=== PATIENT | female | born 1990 | race Caucasian/White ===

== ENCOUNTER 2020-09-05 11:13 | Emergency (ER) | payer OTHER ==
[~2020-09-05 11:13] MED LIST: BACTRIM DS1 TAB PO; BELBUCA150 MCG MT; DICLOFENAC75 MG PO; OXTELLAR XR150 MG MT; ZARONTIN250 MG PO
== END 2020-09-05 12:23 | disposition left against medical advice (07) | DRG 951 ==
LOC: ED 11:13 → LWOBS 12:22
DX: Z53.21 Procedure and treatment not carried out due to patient leaving prior to being seen by health care provider (principal)

== ENCOUNTER 2020-12-08 10:28 | Emergency (ER) | payer OTHER ==
[2020-12-08 11:45] LABS: HEMATOCRIT 45.8 % (37.0-47.0); IMMATURE GRANULOCYTES 0.3 % (0.0-5.0); MEAN CELL VOLUME 85.1 fL CALC (80.0-100.0); MEAN CORPUSCULAR HGB 27.9 pG CALC (26.0-32.0); MEAN CORPUSCULAR HGB CONC 32.8 g/dL CAL (32.0-36.0); NEUT# 8.78 thou/uL (2.00-7.15); RED BLOOD COUNT 5.38 mill/uL (4.20-5.60); RED CELL DISTRI WIDTH 13.2 % (11.5-15.5)
[2020-12-08 11:47] LABS: URINE BLOOD DIPSTICK MODERATE (NEGATIVE); URINE COLOR YELLOW; URINE GLUCOSE - DIPSTICK NEGATIVE (NEGATIVE); URINE KETONE TRACE mg/dL (NEGATIVE); URINE LEUK ESTERASE NEGATIVE (NEGATIVE); URINE PROTEIN - DIPSTICK 30 mg/dL (NEG-TRACE); URINE SPECIFIC GRAVITY >=1.030; URINE UROBILINOGEN - DIPSTICK 0.2 E.U./dL (0.2)
[2020-12-08 11:50] LABS: URINE BILIRUBIN - DIPSTICK SMALL (NEGATIVE)
[2020-12-08 11:51] LABS: URINE EPITHELIAL CELLS FEW EPI/hpf (0-FEW); URINE NITRITE - DIPSTICK NEGATIVE (Negative); URINE RBC 0-2 RBC/hpf (0-5); URINE WBC 0-2 WBC/hpf (0-5)
[2020-12-08 11:52] LABS: URINE AMORPH SEDIMENT MANY hpf (NONE-FEW)
[2020-12-08 13:12] LABS: ALBUMIN 4.2 g/dL (3.2-5.0); ALKALINE PHOSPHATASE 66 u/l (38-126); AMYLASE 47 u/l (30-110); ANION GAP 11 (6-22 (CALC)); BILIRUBIN, TOTAL 0.7 mg/dL (0.0-1.4); BUN 10 mg/dL (7-17); BUN/CREATININE RATIO 15 (12-20 (CALC)); CARBON DIOXIDE 25 mmol/l (22-30); CHLORIDE 101 mmol/l (95-108); CREATININE 0.7 mg/dL (0.5-1.0); GFR > 60 ML/MIN (>=60 (CALC)); GFR FOR AFR.AMER. > 60 ML/MIN (>=60 (CALC)); LIPASE 44 u/l (23-300); POTASSIUM 3.3 mmol/l (3.5-5.1); SGOT/AST 21 u/l (14-36); SODIUM 134 mmol/l (137-146); TOTAL PROTEIN 7.6 g/dL (6.3-8.2)
[2020-12-08] MEDS ORDERED: ZITHROMAX250 MG PO (16:43)
[2020-12-08 17:25] VITALS: BP 104/96
== END 2020-12-08 17:26 | disposition home or self-care (01) ==
LOC: ED 10:28
DX: A04.5 Campylobacter enteritis (principal)
CPT/HCPCS: Q9967

== ENCOUNTER 2021-11-18 15:07 | Emergency (ER) | payer OTHER ==
[~2021-11-18] VITALS: Ht 165.1 cm; Wt 118.0 kg
[2021-11-18] VITALS (10 sets, daily range): BP systolic 80–125; BP diastolic 52–80
[~2021-11-18 15:07] MED LIST changes: +ZITHROMAX250 MG PO
[2021-11-18 16:20] LABS: URINE BILIRUBIN - DIPSTICK NEGATIVE (NEGATIVE); URINE BLOOD DIPSTICK MODERATE (NEGATIVE); URINE COLOR YELLOW; URINE GLUCOSE - DIPSTICK NEGATIVE (NEGATIVE); URINE KETONE NEGATIVE (NEGATIVE); URINE LEUK ESTERASE NEGATIVE (NEGATIVE); URINE PROTEIN - DIPSTICK NEGATIVE (NEG-TRACE); URINE SPECIFIC GRAVITY >=1.030; URINE UROBILINOGEN - DIPSTICK 0.2 E.U./dL (0.2)
[2021-11-18 16:30] LABS: HEMATOCRIT 42.3 % (37.0-47.0); HEMOGLOBIN 13.8 g/dl (12.0-16.0); IMMATURE GRANULOCYTES 0.3 % (0.0-5.0); MEAN CELL VOLUME 86.3 fL CALC (80.0-100.0); MEAN CORPUSCULAR HGB 28.2 pG CALC (26.0-32.0); MEAN CORPUSCULAR HGB CONC 32.6 g/dL CAL (32.0-36.0); NEUT# 4.89 thou/uL (2.00-7.15); RED BLOOD COUNT 4.9 mill/uL (4.20-5.60)
[2021-11-18 16:30] LABS: URINE NITRITE - DIPSTICK NEGATIVE (Negative)
[2021-11-18 16:31] LABS: URINE SQUAMOUS EPITHELIAL CELL MANY EPI/hpf (0-FEW); URINE WBC 0-2 WBC/hpf (0-5)
[2021-11-18 16:46] LABS: ALKALINE PHOSPHATASE 59 u/l (38-126); AMYLASE 48 u/l (30-110); ANION GAP 16 (6-22 (CALC)); BUN 10 mg/dL (7-17); BUN/CREATININE RATIO 16 (12-20 (CALC)); CARBON DIOXIDE 21 mmol/l (22-30); CHLORIDE 107 mmol/l (95-108); CREATININE 0.6 mg/dL (0.5-1.0); GFR > 60 ML/MIN (>=60 (CALC)); GFR FOR AFR.AMER. > 60 ML/MIN (>=60 (CALC)); LIPASE 128 u/l (23-300); POTASSIUM 3.7 mmol/l (3.5-5.1); SGOT/AST 29 u/l (14-36); SODIUM 139 mmol/l (137-146); TOTAL PROTEIN 7.3 g/dL (6.3-8.2)
[2021-11-18 16:47] LABS: BILIRUBIN, TOTAL 0.4 mg/dL (0.0-1.4)
[2021-11-18] MEDS ORDERED: ZITHROMAX250 MG PO (18:20)
[2021-11-18] MEDS ORDERED: HYDROCO/APAP1 TA9 PO (18:20)
== END 2021-11-18 19:10 | disposition home or self-care (01) ==
LOC: ED 15:07
DX: A04.5 Campylobacter enteritis (principal); Z20.822 Contact with and (suspected) exposure to COVID-19
CPT/HCPCS: Q9967

== ENCOUNTER 2022-09-05 17:46 | Emergency (ER) | payer OTHER ==
[2022-09-05] VITALS (8 sets, daily range): BP systolic 105–140; BP diastolic 76–94
[~2022-09-05] VITALS: Ht 165.1 cm; Wt 115.0 kg
[~2022-09-05 17:46] MED LIST changes: +HYDROCO/APAP1 TA9 PO
[2022-09-05] MEDS ORDERED: NAPROXEN500 MG PO (19:23)
[2022-09-05] MEDS ORDERED: KEFLEX500 MG PO (19:39)
== END 2022-09-05 20:05 | disposition home or self-care (01) ==
LOC: ED 17:46
DX: S90.112A Contusion of left great toe without damage to nail, initial encounter (principal); W20.8XXA Other cause of strike by thrown, projected or falling object, initial encounter; Y92.009 Unspecified place in unspecified non-institutional (private) residence as the place of occurrence of the external cause